=== PATIENT | female | born 1990 | race American Indian/Alaskan Native ===

== ENCOUNTER 2017-01-16 10:28 | Outpatient (CLI) | payer MEDICAID ==
[2017-01-16 13:37] VITALS: BP 119/63
== END 2017-01-16 13:46 | disposition home or self-care (01) ==
LOC: TRG 10:28 → LAB 10:28 → TRG 12:54 → LD 13:01 → TRG 13:46
PROVIDERS: ATTEND Obstetrics & Gynecology
DX: Z67.41 Type O blood, Rh negative (principal)
CPT/HCPCS: 86850; 86900; 86901; 96372; J2790

== ENCOUNTER 2017-02-28 13:29 | Inpatient (IN) | payer MEDICAID ==
[2017-02-28] MEDS ORDERED: DIPRIVAN 10 MG/ML IV ONE (13:45)
[2017-02-28] MEDS ORDERED: QUELICIN ONE (13:46)
[2017-02-28] MEDS ORDERED: ANCEF/STERILE WATER 2 GM/20 ML 2 GM/20 ML SYRINGE IV ONE (13:48)
[2017-02-28] MEDS ORDERED: NACL 0.9% IR ONE (13:55)
[2017-02-28] MEDS ORDERED: WATER FOR IRRIG STERILE IR ONE (13:55)
[2017-02-28] MEDS ORDERED: DILAUDID ONE (13:56)
[2017-02-28] MEDS ORDERED: ZOFRAN ONE (14:08)
[2017-02-28] MEDS ORDERED: NACL 0.9% 1000 ML 1,000 ML ONE ×2 (14:08→14:28)
[2017-02-28] MEDS ORDERED: DECADRON ONE (14:14)
[2017-02-28 14:24] LABS: ISTAT Base Excess -4; ISTAT DEVICE 0; ISTAT HCO3 21.7; ISTAT PCO2 39.8 (35-45); ISTAT PH 7.345 (7.35-7.45); ISTAT PO2 16 (80-105); ISTAT SO2 19; ISTAT TCO2 23
[2017-02-28 14:25] LABS: ISTAT Base Excess -5; ISTAT DEVICE 0; ISTAT HCO3 20.5; ISTAT PCO2 35.6 (35-45); ISTAT PH 7.368 (7.35-7.45); ISTAT PO2 25 (80-105); ISTAT SO2 44; ISTAT TCO2 22
--- NOTE | 2017-02-28 14:32 | History and Physical Report ---
History of Present Illness Date of examination: 02/28/17 Date of admission: 02/28/17 13:51 Chief complaint: Heavy vaginal bleeding History of present illness: Pt is a 27yo BF EDC 04/06/17; EGA 34 5/7 weeks who presented to L&D complaining of heavy vaginal bleeding, and now passing blood clots starting ~ 1 hour ago. She received care at [facility] since 14 weeks and course has been unremarkable. At the time of evaluation records were not available, but they are now. Past History Past Medical History: no pertinent history Past Surgical History: no surgical history [employer] History: abnormal PAP smear (ASCUS/HPV-), herpes, trichomonas Family/Genetic History: none Social history: no significant social history, single - Obstetrical History Expected Date of Delivery: 04/06/17 Actual Gestation: 34 Week(s) 5 Day(s) Medications and Allergies Allergies Allergy/AdvReac Type Severity Reaction Status Date / Time No Known Allergies Allergy Verified 01/16/17 13:34 Review of Systems All systems: negative - Physical Exam Breasts: Positive: deferred Cardiovascular: Regular rate Abdomen: Positive: normal appearance, soft Vagina: Positive: other (large blood clots noted.) Uterus: Positive: enlarged Extremities: Positive: normal - Obstetrical FHR: other (bedside u/s showed FHT's <100) Uterine Contraction Monitor Mode: External Results Abnormal lab results 02/28/17 02/28/17 Range/Units 14:15 14:18 POC ABG pH 7.345 L (7.35-7.45) POC ABG pO2 16 L 25 L (80-105) All other labs normal. Ultrasound: other (bedside u/s perfomed since FHT's were not obtained on the monitor) Assessment and Plan - Patient Problems (1) 34 weeks gestation of Onset Date: 02/28/17 Current Visit: Yes Status: Acute Plan to address problem: A: IUP @ 34 5/7 weeks Suspect Placental abruption P: Will proceed with a STAT C Section Anesthesia and NICU notified (2) Placental abruption in third trimester Onset Date: 02/28/17 Current Visit: Yes Status: Acute
--- NOTE | 2017-02-28 14:41 | Operative Report ---
Operative Report Operative Report: Date of procedure: 02/28/2017 Pre-operative diagnosis: 1. Intrauterine at 34 5/7 weeks 2. Vaginal bleeding - suspect abruptio placenta Post-operative diagnosis: Same with confirmed abruptio placenta Procedure name(s): Stat primary low transverse section Surgeon: Vargas Austin MD Infant Caregiver: None Anesthesia: General endotracheal intubation by Dr. Abdifatah Concepcion EBL: 600 mL's Findings: A 1999 g female Apgars 8 at 1 minute 9 at 5 minutes. Clear amniotic fluid. Large placental abruption. Normal uterus. Normal tubes and ovaries bilaterally Procedure: After the patient was prepped and draped in usual sterile fashion, and after general anesthesia was obtained, the skin knife was used to make a transverse skin incision. The incision was excised down to layer of the fascia , which was nicked in the midline and extended laterally using blunt dissection. The rectus muscles were dissected off the rectus fascia both superiorly and inferiorly. The rectus bellies in the midline, and the peritoneum was entered under direct visualization. The peritoneal incision was extended superiorly and inferiorly. A bladder flap was created and the bladder blade was then placed. The uterus was scored in a curvilinear linear fashion, entered in the midline revealing clear amniotic fluid. The infant's head was delivered onto the surgical field, and the oropharynx and nasopharynx were bulb suctioned. The rest of the infant's body was delivered, cord was doubly clamped and cut and the was handed to the waiting respiratory team. Cord gas and cord blood was then obtained. The placenta was manually removed from the uterus showing a large abruption, it was removed and sent to pathology and the uterus removed from its normal anatomical position. After gentle uterine lavage, the incision was inspected and found to be without extensions. It was then closed in 2 layers using 0 Vicryl suture in a running interlocking fashion, the second layer imbricating the first. After good hemostasis was achieved, copious amounts or irrigation was performed, and the gutters were suctioned free of blood and blood clots. Tisseel sealant was sprayed across the uterine incision. The uterus was then returned to its normal anatomical position, and after excellent hemostasis assured, the peritoneum was reapproximated using 3-0 Vicryl suture in a running interlocking fashion, and then the rectus muscles were reapproximated using 3-0 Vicryl suture in a [id number] configuration. The fascia was then reapproximated using 0 Vicryl suture in running interlocking fashion. The subcutaneous layer was made hemostatic using Bovie cautery, the Tisseel sealant was sprayed across the fascial incision and the skin edges reapproximated using 4-0 Vicryl suture in a subcuticular fashion. Patient tolerated the procedure well was transported to recovery in stable condition.
[2017-02-28] MEDS ORDERED: MYLICON PO PRN (14:52)
[2017-02-28] MEDS ORDERED: NARCAN 0.4 MG/1 ML IV PRN ×2 (14:52)
[2017-02-28] MEDS ORDERED: MILK OF MAGNESIA PO PRN (14:52)
[2017-02-28] MEDS ORDERED: NORCO 5/325 PO PRN (14:52)
[2017-02-28] MEDS ORDERED: BENADRYL IV PRN (14:52)
[2017-02-28] MEDS ORDERED: ZOFRAN IV PRN (14:52)
[2017-02-28] MEDS ORDERED: REGLAN IV PRN (14:52)
[2017-02-28] MEDS ORDERED: LANSINOH TP PRN (14:52)
[2017-02-28] MEDS ORDERED: PHENERGAN PR PRN (14:52)
[2017-02-28] MEDS ORDERED: TYLENOL PO PRN (14:52)
[2017-02-28] MEDS ORDERED: TORADOL IV PRN ×2 (14:52→14:56)
[2017-02-28] MEDS ORDERED: TUCKS PAD TP PRN (14:52)
--- NOTE | 2017-02-28 14:55 | Anesthesia Consultation ---
Anesthesia Consult and Med Hx Date of service: 02/28/17 - Airway Anesthetic Teeth Evaluation: Good ROM Head & Neck: Adequate Mental/Hyoid Distance: Adequate Mallampati Class: Class II Intubation Access Assessment: Probably Good - Pre-Operative Health Status ASA Pre-Surgery Classification: ASA2, Emergency Proposed Anesthetic Plan: General - Additional Comments Anesthesia Medical History Comments: Placenta abruption
--- NOTE | 2017-02-28 14:56 | Anesthesia Day of Surgery ---
Anesthesia Day of Surgery - Day of Surgery Patient Examined: Yes Patient H&P Reviewed: Yes Patient is NPO: Yes
[2017-02-28] MEDS ORDERED: PITOCin/NS 20 UNIT/1000ML DRIP 20 UNITS/1,000 ML BAG IV SCH (15:00)
[2017-02-28] MEDS ORDERED: SODIUM CHLORIDE FLUSH SYRINGE 10 ML IV SCH (15:00)
[2017-02-28] MEDS ORDERED: MORPHINE PCA 30MG/30ML IV SCH (15:00)
[2017-02-28] MEDS ORDERED: NACL 0.9% 1000 ML 1,000 ML IV SCH (15:00)
[2017-02-28] MEDS: DILAUDID IV PRN ×2 (15:19→16:19)
[2017-02-28] MEDS ORDERED: D5LR 1,000 ML IV SCH (16:00)
[2017-02-28 16:42] LABS: Urine Drugs of Abuse Note Disclamer
[2017-02-28 16:43] LABS: Hemoglobin 8.7 gm/dl (10.1-14.3); Mean Corpuscular HGB Conc 31 % (30-34); Mean Corpuscular Volume 77 fl (79-97); Platelet Count 224 K/mm3 (140-440); Red Blood Count 3.66 M/mm3 (3.65-5.03); Red Cell Distribution Width 17.5 % (13.2-15.2); White Blood Count 19.8 K/mm3 (4.5-11.0)
[2017-02-28 16:44] LABS: Mean Corpuscular Hemoglobin 24 pg (28-32)
[2017-02-28 17:47] LABS: Basophils % (Manual) 0 % (0.0-1.8); Blastocytes % (Manual) 0 %; Eosinophils % (Manual) 0 % (0.0-4.3)
[2017-02-28 17:49] LABS: Diff Status Complete; Poikilocytosis Few
[2017-02-28] MEDS: ANCEF/NS 1 GM/50 ML 1 GM/50 ML BAG IV SCH (23:16)
[2017-03-01] MEDS ORDERED: BOOSTRIX IM ONE (06:00)
[2017-03-01] MEDS: ANCEF/NS 1 GM/50 ML 1 GM/50 ML BAG IV SCH (06:03)
[2017-03-01] MEDS: PERCOCET 5/325 PO PRN ×2 (09:13→16:50)
[2017-03-01 09:14] LABS: Hematocrit 23.7 % (30.3-42.9); Hemoglobin 7.3 gm/dl (10.1-14.3)
--- NOTE | 2017-03-01 09:54 | Admit Criteria Form ---
Admission Criteria Documentation: OBSTETRIC AND GYNECOLOGIC DISEASE GRG Clinical Indications for Admission to Inpatient Care (Place 'X' for any and all applicable criteria): Hospital admission is needed for appropriate care of the patient because of 1 or more of the following (1)(2)(3): [ ]I. Hemodynamic instability, as indicated by 1 or more of the following (1)( 2)(3)(4)(5): [ ]a) Vital signs or other findings not as expected for chronic patient condition or baseline [ ]b) Instability indicated by 1 or more of the following: [ ]i) Hypotension [ ]ii) Symptomatic tachycardia unresponsive to treatment (eg, analgesia, fluids, sedation as indicated) [ ]iii) Inadequate perfusion indicated by 1 or more of the following: [ ]A. Lactic acidosis (greater than 2 mmol/ L) [ ]B. New abnormal capillary refill ( greater than 3 seconds) [ ]C. Reduced urine output [ ]D. New altered mental status [ ]iv) Orthostatic vital sign changes unresponsive to treatment (eg, fluids) [ ]v) Multiple IV fluid boluses required to maintain adequate blood pressure or perfusion [ ]vi) IV inotropic or vasopressor medication required to maintain adequate blood pressure or perfusion [ ]II. Obstetric infection requiring hospitalization indicated by 1 or more of the following(13)(14): [ ]a) Chorioamnionitis [ ]b) Endometritis (except mild endometritis) [ ]c) Pelvic abscess [ ]d) Peritonitis [ ]e) Septic pelvic thrombophlebitis [ ]III. Amniotic fluid or pulmonary embolism(4)(5)(6) [ ]IV. Suspected peritonitis or ectopic requiring monitoring beyond scope of 24 hours or observation care(7)(8) [ ]V. compromise requiring hospitalization indicated by ALL of the following(9)(10): [ ]a) compromise indicated by 1 or more of the following(11): [ ]i) Abnormal heart rate monitoring [ ]ii) Abnormal contraction stress test [ ]iii) Abnormal biophysical profile [ ]iv) Abnormal Doppler flow in vessels (ie, Doppler velocimetry) (12) [ ]b) Persistence of compromise indicators during evaluation and observation monitoring [ ]. Ovarian hyperstimulation syndrome requiring hospitalization[A] indicated by ALL of the following(15): [ ]a) Recent ovarian stimulation with gonadotropins, or evidence on ultrasound of spontaneous emergence of large number of ovarian follicles [ ]b) Evidence of severe ovarian hyperstimulation syndrome indicated by 1 or more of the following: [ ]i) Abdominal pain unresponsive to oral therapy [ ]ii) Acute respiratory distress syndrome [ ]iii) Electrolyte imbalance ( eg, hyponatremia, hyperkalemia) [ ]iv) Elevated liver enzymes [ ]v) Evidence of thromboembolism [ ]vi) Hemoconcentration (hematocrit greater than 45 % (0.45)) [ ]vii) Inability to maintain oral intake adequate to prevent hemoconcentration [ ]viii) Marked hypotension from baseline (eg, SBP 20 mmHg below patients usual pressure) [ ]ix) Oliguria or anuria [ ]x) Ovarian torsion [ ]xi) Pleural or pericardial effusion on x-ray or echocardiogram [ ]xii) Rapid increase in serum creatinine to greater than 1.2 mg/dL (106 micromoles/L) or creatinine clearance less than 50 mL/min/1.73m2 (0.84 mL/ sec/1.73m2) [ ]xiii) Ruptured ovarian cyst with hemorrhage [ ]xiv) Severe abdominal pain or peritoneal signs [ ]xv) Tense ascites that cannot be managed with paracentesis in outpatient setting [ ]VII.Pelvic infection requiring hospitalization indicated by 1 or more of the following (16): [ ]a) Outpatient treatment has failed or is not appropriate (eg, inpatient monitoring required) [ ]b) Pelvic abscess [ ]c) Surgical emergency cannot be excluded (eg, rigid abdomen) [ ]d) Vomiting precluding outpatient and observation care management VIII. loss complications requiring inpatient medical treatment indicated by 1 or more of the following (4)(7)(9): [ ]a) Fever [ ]b) Peritonitis [ ]c) Sepsis [ ]d) Severe abdominal pain [ ]IX. or patient requiring monitoring for severe heart failure, pulmonary disease, or other comorbid condition (eg, peripartum cardiomyopathy) (4)(17) [ ]X. patient with rupture of membranes requiring hospitalization indicated by ANY ONE of the following: [ ]a) Chorioamnionitis, cloudy amniotic fluid, or other evidence of infection [ ]b) compromise or other need for monitoring (11) [ ]c) Gestation longer than 23 weeks and ANY ONE of the following: [ ]i) Abnormal (noncephalic) presentation [ ]ii) Inadequate home environment (eg, home too far from hospital, unable to rapidly return to hospital) [ ]d) Temperature greater than 100.4 degrees F (38 degrees C)( oral) [ ]e) Threatened labor requiring monitoring beyond scope (eg, over 24 hours) of observation Care [ ] XI. complications, including severe lacerations, infections, or retained placenta (19) [X] XII.Uterine bleeding with high-risk features indicated by ANY ONE of the following (4): [ ]a) Active major hemorrhage (eg, hemorrhage) [ ]b) Coagulopathy with active bleeding [ ]c) Gestational trophoblastic disease (eg, molar ) (20 ) [X]d) (longer than 23 weeks) and ANY ONE of the following: [ ]i) Pain [X]ii) Placental abruption, known or suspected [ ]iii) Placenta accrete, known or suspected(21) [ ]iv) Placenta previa, known or suspected [ ]v) Vasa previa [ ]e) Severe anemia [ ]XIII. Obstetric or Gynecologic Disease, condition or symptom for which ANY ONE of the following: [ ]a) Emergency and observation care have failed or are not considered appropriate ( Also use General Criteria: Observation Care Criteria as appropriate) [ ]b) Presence of a General Admission Criteria or Pediatric General Admission Criteria The original [facility] content created by [facility] has been revised. The portions of the content which have been revised are identified through the use of italic text or in bold, and [facility] has neither reviewed nor approved the modified material.All other unmodified content is copyright [facility]. Please see references footnoted in the original [facility] edition 2016 Admission Criteria Met: Yes
[2017-03-01] MEDS ORDERED: PRENATAL VITAMIN PO SCH (10:00)
[2017-03-01] MEDS ORDERED: FEOSOL PO SCH (10:00)
[2017-03-01] MEDS ORDERED: INFED IM ONE (10:19)
--- NOTE | 2017-03-01 10:54 | Progress Note ---
Assessment and Plan A: POD #1 Asymptomatic Anemia P: Follow Routine PostOp Orders Advance Diet with + Flatus Infed 100mg IM Ferrous Sulfate 325mg PO TID Subjective - Subjective Date of service: 03/01/17 Patient reports: appetite normal, voiding normally, pain well controlled, ambulating normally : doing well, in NICU, bottle feeding (and ) Objective - Vital Signs Latest vital signs: Vital Signs Temp Pulse Pulse Resp BP BP Pulse Ox 03/01/17 09:13 20 03/01/17 03:50 98.5 F 63 18 125/74 03/01/17 01:22 98.2 F 78 18 130/69 02/28/17 20:45 98.1 F 70 18 136/84 02/28/17 18:25 18 02/28/17 17:30 98.7 F 73 18 142/90 02/28/17 16:55 69 15 142/79 100 02/28/17 16:40 73 18 127/94 100 02/28/17 16:25 72 17 132/79 99 02/28/17 16:19 16 02/28/17 16:10 74 16 139/88 99 02/28/17 15:55 67 15 143/67 98 02/28/17 15:40 60 15 129/85 98 02/28/17 15:25 65 15 131/83 98 02/28/17 15:10 57 L 131/88 98 02/28/17 14:55 60 18 135/74 99 02/28/17 14:50 66 18 130/82 99 02/28/17 14:45 63 16 132/63 100 02/28/17 14:40 97.6 F 83 16 147/90 100 Intake and Output 02/28/17 03/01/17 03/01/17 22:59 06:59 14:59 Intake Total 1690 1500 Output Total 1150 1900 Balance 540 -400 Intake: IV 1450 1000 ANCEF/NS 1 GM/50 ML 1 gm 50 In 50 ml @ 100 mls/hr IV Q8H ANA LILIA Rx#:[id number] D5lr 1,000 ml @ 125 mls/ 700 hr IV DIRECT ANA LILIA Rx#: [id number] PITOCin/NS 20 UNIT/1000ML 450 250 DRIP 20 units In 1,000 ml @ 250 mls/hr IV DIRECT ANA LILIA Rx#:[id number] Intake, Free Water 240 500 Output: Urine 1150 1900 Indwelling Catheter 800 1600 Void 300 Other: Total, Output Amount 800 300 Weight 80.739 kg - Exam Breasts: Present: normal Cardiovascular: Present: Regular rate Lungs: Present: Clear to auscultation, Normal air movement Abdomen: Present: normal appearance, soft, normal bowel sounds Uterus: Present: normal, firm, fundal height below umbilicus Extremities: Present: normal Incision: Present: normal, dry, dressed - Labs Labs: Abnormal lab results 02/28/17 02/28/17 02/28/17 Range/Units 14:15 14:18 16:22 WBC 19.8 H (4.5-11.0) K/mm3 Hgb 8.7 L (10.1-14.3) gm/dl Hct 28.0 L (30.3-42.9) % MCV 77 L (79-97) fl MCH 24 L (28-32) pg RDW 17.5 H (13.2-15.2) % Seg Neuts % (Manual) 90.0 H (40.0-70.0) % Lymphocytes % (Manual) 6.0 L (13.4-35.0) % Seg Neutrophils # Man 17.8 H (1.8-7.7) K/mm3 POC ABG pH 7.345 L (7.35-7.45) POC ABG pO2 16 L 25 L (80-105) 03/01/17 Range/Units 08:02 WBC (4.5-11.0) K/mm3 Hgb 7.3 L (10.1-14.3) gm/dl Hct 23.7 L (30.3-42.9) % MCV (79-97) fl MCH (28-32) pg RDW (13.2-15.2) % Seg Neuts % (Manual) (40.0-70.0) % Lymphocytes % (Manual) (13.4-35.0) % Seg Neutrophils # Man (1.8-7.7) K/mm3 POC ABG pH (7.35-7.45) POC ABG pO2 (80-105)
[2017-03-01] MEDS ORDERED: INFED IM NR (11:30)
--- NOTE | 2017-03-01 13:25 | Progress Note ---
Subjective Date of service: 03/01/17 Interval history: 1st POD after Patient is in the bed, comfortable. Pain is mostly controlled with pain meds. Ambulated well. No nausea or vomiting. No anesthesia complications Objective - Constitutional Vitals: Vital Signs - 12hr 03/01/17 03/01/17 03:50 09:13 Temperature 98.5 F Pulse Rate [ 63 Right] Respiratory 18 20 Rate Blood Pressure 125/74 [Right Arm] - Labs CBC & Chem 7: 03/01/17 08:02 Labs: Abnormal lab results 02/28/17 02/28/17 02/28/17 Range/Units 14:15 14:18 16:22 WBC 19.8 H (4.5-11.0) K/mm3 Hgb 8.7 L (10.1-14.3) gm/dl Hct 28.0 L (30.3-42.9) % MCV 77 L (79-97) fl MCH 24 L (28-32) pg RDW 17.5 H (13.2-15.2) % Seg Neuts % (Manual) 90.0 H (40.0-70.0) % Lymphocytes % (Manual) 6.0 L (13.4-35.0) % Seg Neutrophils # Man 17.8 H (1.8-7.7) K/mm3 POC ABG pH 7.345 L (7.35-7.45) POC ABG pO2 16 L 25 L (80-105) 03/01/17 Range/Units 08:02 WBC (4.5-11.0) K/mm3 Hgb 7.3 L (10.1-14.3) gm/dl Hct 23.7 L (30.3-42.9) % MCV (79-97) fl MCH (28-32) pg RDW (13.2-15.2) % Seg Neuts % (Manual) (40.0-70.0) % Lymphocytes % (Manual) (13.4-35.0) % Seg Neutrophils # Man (1.8-7.7) K/mm3 POC ABG pH (7.35-7.45) POC ABG pO2 (80-105)
[2017-03-01] MEDS ORDERED: M-M-R II VACCINE SUB-Q ONE (14:55)
[2017-03-01] MEDS: FEOSOL PO SCH (19:49)
[2017-03-01] MEDS: MOTRIN PO PRN (20:49)
[2017-03-01] MEDS ORDERED: BENADRYL PO PRN (20:53)
[2017-03-02] MEDS: PERCOCET 5/325 PO PRN (05:35)
--- NOTE | 2017-03-02 09:04 | Progress Note ---
Assessment and Plan A: POD # 2 stable P: Discharge home today Subjective - Subjective Date of service: 03/02/17 Principal diagnosis: for placental abruption Patient reports: appetite normal [place]: in NICU Objective - Vital Signs Latest vital signs: Vital Signs Temp Pulse Resp BP 03/02/17 01:40 98.1 F 81 18 113/69 03/01/17 16:50 20 03/01/17 16:00 98.4 F 78 16 130/81 03/01/17 12:00 98.2 F 83 12 133/86 03/01/17 09:13 20 Intake and Output 03/01/17 03/02/17 03/02/17 22:59 06:59 14:59 Intake Total 240 360 Balance 240 360 Intake: Intake, Free Water 240 360 Other: # Voids Void 300 1 - Exam Breasts: Present: deferred Cardiovascular: Present: Regular rate Lungs: Present: Clear to auscultation Abdomen: Present: soft Vulva: both: normal Uterus: Present: fundal height below umbilicus Extremities: Present: normal Deep Tendon Reflex Grade: Normal +2 Incision: Present: intact - Labs Labs: Abnormal lab results 03/01/17 Range/Units 08:02 Hgb 7.3 L (10.1-14.3) gm/dl Hct 23.7 L (30.3-42.9) %
--- NOTE | 2017-03-02 09:06 | Discharge Summary ---
Providers - Providers Date of Admission: 02/28/17 13:51 Date of discharge: 03/02/17 Attending physician: LILIANE CORTES MD Primary care physician: LILIANE CORTES MD Hospitalization Reason for admission: section, other (placental abruption) Delivery: Procedure: section Discharge diagnosis: delivery Orange baby: female Condition at discharge: Good Disposition: DISCHARGED TO HOME OR SELFCARE Plan - Discharge Medications Prescriptions: Ferrous Sulfate [Feosol 325 MG tab] 325 mg PO BID #60 tablet HYDROcodone/APAP 5-325 [[place] 5/325] 1 each PO Q6HR PRN #30 tablet PRN Reason: Pain Ibuprofen [Motrin] 800 mg PO Q8HR PRN #30 tablet PRN Reason: Moder Pain Unrelieved By [place] Vit W-Ca,Fe,FA(<1 mg) [ Vitamins] 1 each PO DAILY #30 tablet - Provider Discharge Summary Additional instructions: [] Smoking cessation referral if applicable(refer to patient education folder for contact #) [] Refer to [facility]'s [facility] Booklet Call your doctor immediately for: * Fever > 100.5 * Heavy vaginal bleeding ( >1 pad per hour) * Severe persistent headache * Shortness of breath * Reddened, hot, painful area to leg or breast * Drainage or odor from incision. * Keep incision clean and dry at all times and follow doctor's instructions regarding bathing/showering - Follow up plan Follow up: [facility] [Provider Group] - 14 Days
[2017-03-02] MEDS: FEOSOL PO SCH ×2 (09:17→14:38)
[2017-03-02] MEDS: MOTRIN PO PRN (09:18)
[2017-03-02 15:23] VITALS: BP 122/88
== END 2017-03-02 14:40 | disposition home or self-care (01) | DRG 765 ==
LOC: TRG 13:29 → APU 13:51 → OB 17:38
PROVIDERS: ADMIT Obstetrics & Gynecology; ATTEND Obstetrics & Gynecology
PROC: 10D00Z1 Extraction of Products of Conception, Low, Open Approach (ICD-10-PCS; principal; 2017-02-28)
PROC: 4A033R1 Measurement of Arterial Saturation, Peripheral, Percutaneous Approach (ICD-10-PCS; 2017-02-28)
PROC: 3E0334Z Introduction of Serum, Toxoid and Vaccine into Peripheral Vein, Percutaneous Approach (ICD-10-PCS; 2017-02-28)
DX: O45.93 Premature separation of placenta, unspecified, third trimester (principal); O60.14X0 Preterm labor third trimester with preterm delivery third trimester, not applicable or unspecified; O76 Abnormality in fetal heart rate and rhythm complicating labor and delivery; O90.81 Anemia of the puerperium; D64.9 Anemia, unspecified; Z3A.34 34 weeks gestation of pregnancy; Z37.0 Single live birth
CPT/HCPCS: 36415; 80307; 82803; 85007; 85014; 85018; 85025; 85460; 85461; 86850; 86870; 86900; 86901; 88307; 90471; 90715; C9250; J0330; J0690; J1100; J1170; J1750; J1885; J2270; J2405; J2590; J2704; J2790; J7030; J7121

== ENCOUNTER 2019-05-21 12:52 | Emergency (ER) | payer MEDICAID ==
--- NOTE | 2019-05-21 13:24 | Event Note ---
ED Screening Note Date of service: 05/21/19 Time: 13:22 ED Screening Note: 29 y/o female comes in for neck pain in the last few days. Today not able to turn neck. No trauma no fever. no N/V. LMP 05/17/19. This initial assessment/diagnostic orders/clinical plan/treatment(s) is/are subject to change based on patients health status, clinical progression and re- assessment by fellow clinical providers in the ED. Further treatment and workup at subsequent clinical providers discretion. Patient/guardian urged not to elope from the ED as their condition may be serious if not clinically assessed and managed. Initial orders include:
[2019-05-21] MEDS ORDERED: TORADOL IM ONE (13:25)
[2019-05-21] MEDS ORDERED: FLEXERIL PO ONE (13:25)
[2019-05-21] MEDS ORDERED: DECADRON IV ONE (14:04)
--- NOTE | 2019-05-21 14:08 | Emergency Department Report ---
ED Neck Pain/Injury HPI - General Chief Complaint: Pain General Stated Complaint: NECK PAIN Time Seen by Provider: 05/21/19 13:37 Mode of arrival: Ambulatory Limitations: No Limitations - History of Present Illness Initial Comments: Patient is a 29-year-old female who presents to the emergency room with complaints of left-sided neck pain that began 2 days ago. states that she just woke up with it. She states she's had difficulty turning towards the left side. Denies any fall, injury, trauma. She denies any numbness or weakness. she has never had this before. she denies any past medical history allergies to medications. - Related Data Previous Rx's Medication Instructions Recorded Last Taken Type Ferrous Sulfate [Feosol 325 MG tab] 325 mg PO BID #60 tablet 02/28/17 Unknown Rx HYDROcodone/APAP 5-325 [[place] 1 each PO Q6HR PRN #30 tablet 02/28/17 Unknown Rx 5/325] Vit Calc,Iron,Folic 1 each PO DAILY #30 tablet 02/28/17 Unknown Rx [ Vitamins] Cyclobenzaprine [Flexeril] 10 mg PO QHS PRN #10 tablet 05/21/19 Unknown Rx Ibuprofen [Motrin 800 MG tab] 800 mg PO Q8HR PRN #20 tablet 05/21/19 Unknown Rx Prednisone [predniSONE 10 mg 10 mg PO .TAPER #1 tab.ds.pk 05/21/19 Unknown Rx (6-Day Pack, 21 Tabs)] Allergies Allergy/AdvReac Type Severity Reaction Status Date / Time No Known Allergies Allergy Verified 05/21/19 13:24 ED Review of Systems ROS: Stated complaint: NECK PAIN Other details as noted in HPI Comment: All other systems reviewed and negative ED Past Medical Hx - Past Medical History Previous Medical History?: No Hx Hypertension: No Hx Congestive Heart Failure: No Hx Diabetes: No Hx Deep Vein Thrombosis: No Hx Renal Disease: No Hx Sickle Cell Disease: No Hx Seizures: No Hx Asthma: No Hx COPD: No Hx HIV: No - Surgical History Past Surgical History?: No - Social History Smoking Status: Current Some Day Smoker Substance Use Type: Alcohol - Medications Home Medications: Home Medications Medication Instructions Recorded Confirmed Last Taken Type Ferrous Sulfate [Feosol 325 MG tab] 325 mg PO BID #60 tablet 02/28/17 Unknown Rx HYDROcodone/APAP 5-325 [[place] 1 each PO Q6HR PRN #30 tablet 02/28/17 Unknown Rx 5/325] Vit Calc,Iron,Folic 1 each PO DAILY #30 tablet 02/28/17 Unknown Rx [ Vitamins] Cyclobenzaprine [Flexeril] 10 mg PO QHS PRN #10 tablet 05/21/19 Unknown Rx Ibuprofen [Motrin 800 MG tab] 800 mg PO Q8HR PRN #20 tablet 05/21/19 Unknown Rx Prednisone [predniSONE 10 mg 10 mg PO .TAPER #1 tab.ds.pk 05/21/19 Unknown Rx (6-Day Pack, 21 Tabs)] ED Physical Exam - General Limitations: No Limitations General appearance: alert, in no apparent distress - Head Head exam: Present: atraumatic, normocephalic - Eye Eye exam: Present: normal appearance, PERRL - ENT ENT exam: Present: mucous membranes moist - Neck Neck exam: Present: normal inspection, tenderness (left C-spine paraspinal muscular TTP, no midline C-spine tenderness), full ROM (pain with rotating to the left ), other (+muscle spasm on the left ). Absent: meningismus - Respiratory Respiratory exam: Present: normal lung sounds bilaterally. Absent: respiratory distress, wheezes, rales, rhonchi, stridor, chest wall tenderness, accessory muscle use, decreased breath sounds, prolonged expiratory - Cardiovascular Cardiovascular Exam: Present: regular rate, normal rhythm, normal heart sounds. Absent: systolic murmur, diastolic murmur, rubs, gallop - Neurological Exam Neurological exam: Present: alert, oriented X3, CN II-XII intact, normal gait. Absent: motor sensory deficit - Psychiatric Psychiatric exam: Present: normal affect, normal mood - Skin Skin exam: Present: warm, dry, intact ED Course Vital Signs 05/21/19 05/21/19 05/21/19 12:57 13:22 13:37 Temperature 98.3 F Pulse Rate 120 H 95 H Respiratory 16 20 Rate Blood Pressure Blood Pressure 160/98 [Left] O2 Sat by Pulse 100 100 Oximetry 05/21/19 14:23 Temperature Pulse Rate 100 H Respiratory Rate Blood Pressure 167/118 Blood Pressure [Left] O2 Sat by Pulse 100 Oximetry ED Medical Decision Making - Medical Decision Making Patient is a 29-year-old female who presents to the emergency room with complaints of left-sided neck pain that began 2 days ago. states that she just woke up with it. She states she's had difficulty turning towards the left side. Denies any fall, injury, trauma. She denies any numbness or weakness. she has never had this before. she denies any past medical history allergies to medications. on exam: left C-spine paraspinal muscular TTP, no midline C-spine tenderness, +muscle spasm on the left, no neuro deficits. pt given toradol, dexamethsone, and flexeril while in the ED and her symptoms improved. pt given flexeril and ibuprofen and prednisone. advised pt to please take medications as prescribed. Do not drive or operate heavy machinery while taking muscle relaxer. may use ice, rest, heat, epsom salt bath. Return to the emergency room for any new or worsening symptoms. discussed with pt the elevation in her blood pressure and advised her to keep a BP log and to see her PCP and discuss with her PCP. - Differential Diagnosis torticolis, muscle strain, muscle spasm Critical care attestation.: If time is entered above; I have spent that time in minutes in the direct care of this critically ill patient, excluding procedure time. ED Disposition Clinical Impression: Neck pain, Muscle spasm, Elevated blood pressure reading Disposition: DC-01 TO HOME OR SELFCARE Is pt being admited?: No Does the pt Need Aspirin: No Condition: Stable Instructions: Muscle Spasm (ED) Additional Instructions: Please take medications as prescribed. Do not drive or operate heavy machinery while taking muscle relaxer. may use ice, rest, heat, epsom salt bath. Return to the emergency room for any new or worsening symptoms. Prescriptions: Cyclobenzaprine [Flexeril] 10 mg PO QHS PRN #10 tablet PRN Reason: Muscle Spasm Ibuprofen [Motrin 800 MG tab] 800 mg PO Q8HR PRN #20 tablet PRN Reason: Pain, Moderate (4-6) Prednisone [predniSONE 10 mg (6-Day Pack, 21 Tabs)] 10 mg PO .TAPER #1 tab.ds.pk Referrals: SHY TERRELL MD [Primary Care Provider] - 2-3 Days Time of Disposition: 14:10 Print Language: CAPE VERDEAN
[2019-05-21] MEDS ORDERED: DECADRON IM ONE (14:25)
[2019-05-21 14:26] VITALS: BP 167/118
== END 2019-05-21 14:31 | disposition home or self-care (01) ==
LOC: ED 12:52
DX: M54.2 Cervicalgia (principal); M62.838 Other muscle spasm; I10 Essential (primary) hypertension; F17.200 Nicotine dependence, unspecified, uncomplicated; Z79.1 Long term (current) use of non-steroidal anti-inflammatories (NSAID); Z79.899 Other long term (current) drug therapy
CPT/HCPCS: 96372; 99282; J1100; J1885

== ENCOUNTER 2019-09-30 16:17 | Inpatient (IN) | payer MEDICAID ==
[2019-09-30] MEDS ORDERED: SODIUM CHLORIDE 0.9% 500 ML 500 ML IV SCH (17:37)
[2019-09-30] MEDS: SODIUM CHLORIDE 0.9% 1000 ML 1,000 ML IV SCH (17:38)
[2019-09-30 20:13] LABS: Hematocrit 26.8 % (30.3-42.9); Hemoglobin 8.2 gm/dl (10.1-14.3)
--- NOTE | 2019-09-30 20:18 | History and Physical Report ---
History of Present Illness Date of examination: 09/30/19 Date of admission: 09/30/19 17:08 Chief complaint: Generalized fatigue, symptomatic anemia/picca syndrome. History of present illness: Patient presented to the office, with easy fatigue, and dyspnea, labs reviewed, hgb of 7.1, previously 8.2 2weeks prior. Hx of heavy menstrual periods.She was examined, and admitted to the hospital, for sxs management, and control. She will be hydrated, and get replacement transfusion. 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 Past History Past Medical History: anemia, hypertension Social history: single, lives with family Family history: no significant family history Medications and Allergies Allergies Allergy/AdvReac Type Severity Reaction Status Date / Time No Known Allergies Allergy Verified 05/21/19 13:24 Home Medications Medication Instructions Recorded Confirmed Last Taken Type Ferrous Sulfate [Feosol 325 MG tab] 325 mg PO BID #60 tablet 02/28/17 09/30/19 Unknown Rx HYDROcodone/APAP 5-325 [[place] 1 each PO Q6HR PRN #30 tablet 02/28/17 09/30/19 Unknown Rx 5/325] Vit Calc,Iron,Folic 1 each PO DAILY #30 tablet 02/28/17 09/30/19 Unknown Rx [ Vitamins] Cyclobenzaprine [Flexeril] 10 mg PO QHS PRN #10 tablet 05/21/19 09/30/19 Unknown Rx Ibuprofen [Motrin 800 MG tab] 800 mg PO Q8HR PRN #20 tablet 05/21/19 09/30/19 Unknown Rx Prednisone [predniSONE 10 mg 10 mg PO .TAPER #1 tab.ds.pk 05/21/19 09/30/19 Unknown Rx (6-Day Pack, 21 Tabs)] Active Meds: Active Medications Amlodipine Besylate (Amlodipine) 10 mg PO QDAY ANA LILIA Sodium Chloride (Nacl 0.9% 1000 Ml) 1,000 mls @ 125 mls/hr IV DIRECT ANA LILIA Last Admin: 09/30/19 17:38 Dose: 125 mls/hr Documented by: Sodium Chloride (Nacl 0.9% 500 Ml) 500 mls @ 0 mls/hr IV ONCE ANA LILIA Stop: 10/01/19 06:00 Potassium Chloride (K-Dur) 20 meq PO QDAY ANA LILIA Review of Systems Constitutional: fatigue, weakness, malaise Breasts: deferred Exam - Constitutional Vitals: Temp Pulse Resp BP Pulse Ox 97.5 F L 111 H 18 135/97 100 09/30/19 17:43 09/30/19 17:43 09/30/19 17:43 09/30/19 17:43 09/30/19 17:43 General appearance: Present: mild distress, well-nourished - EENT Eyes: Present: PERRL ENT: hearing intact, clear oral mucosa - Neck Neck: Present: supple, normal ROM - Respiratory Respiratory effort: normal Respiratory: bilateral: CTA - Cardiovascular Heart Sounds: Present: S1 & S2. Absent: rub, click - Extremities Extremities: pulses symmetrical, No edema Peripheral Pulses: within normal limits - Abdominal General gastrointestinal: Present: soft, non-tender, non-distended, normal bowel sounds Female genitourinary: Present: deferred - Rectal Rectal Exam: deferred - Integumentary Integumentary: Present: clear, warm, dry - Musculoskeletal Musculoskeletal: gait normal, strength equal bilaterally - Psychiatric Psychiatric: appropriate mood/affect, intact judgment & insight - Neurologic Neurologic: CNII-XII intact, moves all extremities Assessment and Plan - Patient Problems (1) Generalized weakness Current Visit: Yes Status: Acute Plan to address problem: supportive care care (2) Dehydration Current Visit: Yes Status: Acute Plan to address problem: Hydration. (3) Anemia Current Visit: Yes Status: Acute Plan to address problem: Blood transfusion
[2019-09-30 20:38] LABS: Iron 127 ug/dL (37-170); Total Iron Binding Capacity 469 mcg/dL (250-450)
[2019-10-01] MEDS: SODIUM CHLORIDE 0.9% 1000 ML 1,000 ML IV SCH (03:06)
[2019-10-01] MEDS ORDERED: amLODIPine 10 MG TAB PO SCH (10:00)
[2019-10-01] MEDS ORDERED: POTASSIUM CHLORIDE ER 20 MEQ TAB PO SCH (10:00)
[2019-10-01] MEDS ORDERED: FUROSEMIDE 40 MG/4 ML INJ IV STA (10:37)
[2019-10-01] MEDS ORDERED: FUROSEMIDE 20 MG/2 ML INJ IV ONE (11:00)
[2019-10-01 18:22] VITALS: BP 135/90
[2019-10-01 19:33] LABS: Hemoglobin 11.7 gm/dl (10.1-14.3)
--- NOTE | 2019-10-01 20:04 | Discharge Summary ---
Providers - Providers Date of Admission: 09/30/19 17:08 Date of discharge: 10/01/19 Attending physician: NORMA HOLLAND Primary care physician: SHY TERRELL Hospitalization Condition: Good Hospital course: Patient seen/examined, resting in bed, labs reviewed, post transfusion, hgb well stable, responded quite well to the transfusion. patient had presented to the office ,with generalized weakness, /fatigue. Hgb was quite low. patient was admitted for sxs management, and control. patient denies any new issues at this time, She denies any Chest pain. BP was elevated earlier, lasix was given, as well as her BP meds, and she did well. Patient will be d/c home now. Disposition: - TO HOME OR SELFCARE - Discharge Diagnoses (1) Generalized weakness Status: Resolved (2) Dehydration Status: Resolved (3) Anemia Status: Resolved Core Measure Documentation - Palliative Care Palliative Care/ Comfort Measures: Not Applicable - Core Measures Any of the following diagnoses?: none Exam - Constitutional Vitals: Temp Pulse Resp BP Pulse Ox 98.1 F 82 20 135/90 100 10/01/19 16:50 10/01/19 16:50 10/01/19 16:50 10/01/19 16:50 10/01/19 16:50 General appearance: Present: no acute distress, well-nourished - EENT Eyes: Present: PERRL ENT: hearing intact, clear oral mucosa - Neck Neck: Present: supple, normal ROM - Respiratory Respiratory effort: normal Respiratory: bilateral: CTA - Cardiovascular Heart Sounds: Present: S1 & S2. Absent: rub, click - Extremities Extremities: pulses symmetrical, No edema Peripheral Pulses: within normal limits - Abdominal General gastrointestinal: Present: soft, non-tender, non-distended, normal bowel sounds Female genitourinary: Present: deferred - Rectal Rectal Exam: deferred - Integumentary Integumentary: Present: clear, warm, dry - Musculoskeletal Musculoskeletal: gait normal, strength equal bilaterally - Psychiatric Psychiatric: appropriate mood/affect, intact judgment & insight - Neurologic Neurologic: CNII-XII intact, moves all extremities Plan Activity: no restrictions Diet: low salt Follow up with: SHY TERRELL MD [Primary Care Provider] - 7 Days YIMI CASTRO MD [Staff Physician] - 7 Days NORMA HOLLAND DO [Staff Physician] - 7 Days
== END 2019-10-01 21:11 | disposition home or self-care (01) | DRG 812 ==
LOC: 3A 16:17 → UNDOADMIN 16:17 → 3A 17:08
PROVIDERS: ADMIT Internal Medicine Hematology & Oncology; ATTEND Internal Medicine Hematology & Oncology
PROC: 30233N1 Transfusion of Nonautologous Red Blood Cells into Peripheral Vein, Percutaneous Approach (ICD-10-PCS; principal; 2019-09-30)
DX: D64.9 Anemia, unspecified (principal); E86.0 Dehydration; I10 Essential (primary) hypertension; Z79.899 Other long term (current) drug therapy
CPT/HCPCS: 36415; 82728; 83550; 85014; 85018; 85613; 86850; 86900; 86901; 86920; G0378; J1940; J7030; J7040; P9016

== ENCOUNTER 2020-12-22 12:26 | Emergency (ER) | payer MEDICAID ==
--- NOTE | 2020-12-22 13:56 | Event Note ---
ED Screening Note Date of service: 12/22/20 Time: 13:55 ED Screening Note: 31-year-old -[place] female with a history of hypertension presents to the emergency room for syncopal moment work. Patient reports she had times in the past. Patient reports has a history of anemia. She does have a primary care provider. This initial assessment/diagnostic orders/clinical plan/treatment(s) is/are subject to change based on patients health status, clinical progression and re- assessment by fellow clinical providers in the ED. Further treatment and workup at subsequent clinical providers discretion. Patient/guardian urged not to elope from the ED as their condition may be serious if not clinically assessed and managed. Initial orders include:
[2020-12-22 14:25] LABS: Basophils # (Auto) 0.1 K/mm3 (0.0-0.1); Basophils % (Auto) 1.1 % (0.0-1.8); Eosinophils # (Auto) 0.3 K/mm3 (0.0-0.4); Eosinophils % (Auto) 5.9 % (0.0-4.3); Hematocrit 32.4 % (30.3-42.9); Hemoglobin 10.3 gm/dl (10.1-14.3); Lymphocytes # (Auto) 1.6 K/mm3 (1.2-5.4); Lymphocytes % (Auto) 34.9 % (13.4-35.0); Mean Corpuscular HGB Conc 32 % (30-34); Monocytes # (Auto) 0.4 K/mm3 (0.0-0.8); Monocytes % (Auto) 9.2 % (0.0-7.3); Platelet Count 428 K/mm3 (140-440); Red Blood Count 4.79 M/mm3 (3.65-5.03)
[2020-12-22 14:26] LABS: Mean Corpuscular Volume 68 fl (79-97)
[2020-12-22 14:42] LABS: Creatine Kinase MB 1.3 ng/mL (0.0-4.0)
[2020-12-22 14:43] LABS: Alanine Aminotransferase 10 units/L (7-56); Albumin 4.8 g/dL (3.9-5); BUN/Creatinine Ratio 10; Blood Urea Nitrogen 7 mg/dL (7-17); Calcium 9.8 mg/dL (8.4-10.2); Hemolysis Index 2
--- NOTE | 2020-12-22 14:44 | Emergency Department Report ---
HPI - General Chief Complaint: Syncope Time Seen by Provider: 12/22/20 14:18 - HPI HPI: This is a 30-year-old -[place] female presents to the emergency department via EMS from work after having nausea, vomiting, and passing out. Patient says that she woke up this morning and felt lightheaded but that improved after taking her blood pressure medication. She went to work and felt a tightness in her shoulders, "which is usually what happens prior to me passing out." The patient went into the break room, sat down, but then began having some nausea with vomiting. Shortly after she finished vomiting the patient stood up and then passed out. The patient says that she does have a history of recurrent episodes of passing out and the last one happened about 2 weeks ago. The patient is currently having this evaluated by her primary care physician and has also seen cardiology, neurology, otolaryngology, but "nobody has found out what is going on." She has a past medical history of hypertension. No recent travel or sick contacts at home. ED Past Medical Hx - Past Medical History Hx Hypertension: No Hx Congestive Heart Failure: No Hx Diabetes: No Hx Deep Vein Thrombosis: No Hx Renal Disease: No Hx Sickle Cell Disease: No Hx Seizures: No Hx Asthma: No Hx COPD: No Hx HIV: No - Surgical History Additional Surgical History: - Social History Smoking Status: Current Every Day Smoker Substance Use Type: Alcohol, Marijuana - Medications Home Medications: Home Medications Medication Instructions Recorded Confirmed Last Taken Type Ferrous Sulfate [Feosol 325 MG tab] 325 mg PO BID #60 tablet 02/28/17 09/30/19 Unknown Rx HYDROcodone/APAP 5-325 [[place] 1 each PO Q6HR PRN #30 tablet 02/28/17 09/30/19 Unknown Rx 5/325] Vit Calc,Iron,Folic 1 each PO DAILY #30 tablet 02/28/17 09/30/19 Unknown Rx [ Vitamins] Cyclobenzaprine [Flexeril] 10 mg PO QHS PRN #10 tablet 05/21/19 09/30/19 Unknown Rx Ibuprofen [Motrin 800 MG tab] 800 mg PO Q8HR PRN #20 tablet 05/21/19 09/30/19 Unknown Rx Prednisone [predniSONE 10 mg 10 mg PO .TAPER #1 tab.ds.pk 05/21/19 09/30/19 Unknown Rx (6-Day Pack, 21 Tabs)] Hyoscyamine Subl [Levsin Sl 0.125 0.125 mg SL Q6HR PRN #10 tab 06/12/20 Unknown Rx TAB] Ondansetron [Zofran Odt] 4 mg PO Q8HR PRN #10 tab.rapdis 06/12/20 Unknown Rx Ondansetron [Zofran Odt] 4 mg PO Q8HR PRN #14 tab.rapdis 12/22/20 Unknown Rx ED Review of Systems ROS: Stated complaint: LIGHTHEADED/VOMITING Other details as noted in HPI Comment: All other systems reviewed and negative Constitutional: denies: chills, fever Eyes: denies: eye pain, vision change ENT: denies: ear pain, throat pain Respiratory: denies: cough, shortness of breath Cardiovascular: syncope. denies: chest pain, palpitations Gastrointestinal: nausea, vomiting Genitourinary: denies: dysuria, discharge Musculoskeletal: denies: back pain, arthralgia Skin: denies: rash, lesions Neurological: denies: headache, weakness Physical Exam - Physical Exam Vital Signs: Vital Signs 12/22/20 12/22/20 13:09 13:58 Temperature 99.1 F Pulse Rate 79 Respiratory 16 Rate Blood Pressure 161/112 Blood Pressure 160/96 [Left] O2 Sat by Pulse 100 Oximetry Physical Exam: GENERAL: The patient is well-developed well-nourished. HENT: Normocephalic. Atraumatic. Patient has moist mucous membranes. EYES: Extraocular motions are intact. No nystagmus. NECK: Supple. Trachea is midline. CHEST/LUNGS: Clear to auscultation. There is no respiratory distress noted. HEART/CARDIOVASCULAR: Regular. There is no tachycardia. There is no murmur. ABDOMEN: Abdomen is soft, nontender. Patient has normal bowel sounds. SKIN: Skin is warm and dry. NEURO: The patient is awake, alert, and oriented. The patient is cooperative. The patient has no focal neurologic deficits. Normal speech. Cranial nerves II through XII grossly intact. No facial asymmetry. No pronator drift or dysmetria. MUSCULOSKELETAL: There is no tenderness or deformity. There is no limitation range of motion. ED Course Vital Signs 12/22/20 12/22/20 13:09 13:58 Temperature 99.1 F Pulse Rate 79 Respiratory 16 Rate Blood Pressure 161/112 Blood Pressure 160/96 [Left] O2 Sat by Pulse 100 Oximetry ED Medical Decision Making - Lab Data Result diagrams: 12/22/20 14:06 12/22/20 14:06 Lab Results 12/22/20 12/22/20 12/22/20 Range/Units 14:06 14:06 14:06 WBC 4.7 (4.5-11.0) K/mm3 RBC 4.79 (3.65-5.03) M/mm3 Hgb 10.3 (10.1-14.3) gm/dl Hct 32.4 (30.3-42.9) % MCV 68 L (79-97) fl MCH 21 L (28-32) pg MCHC 32 (30-34) % RDW 17.0 H (13.2-15.2) % Plt Count 428 (140-440) K/mm3 Lymph % (Auto) 34.9 (13.4-35.0) % [place] % (Auto) 9.2 H (0.0-7.3) % Eos % (Auto) 5.9 H (0.0-4.3) % Baso % (Auto) 1.1 (0.0-1.8) % Lymph # (Auto) 1.6 (1.2-5.4) K/mm3 [place] # (Auto) 0.4 (0.0-0.8) K/mm3 Eos # (Auto) 0.3 (0.0-0.4) K/mm3 Baso # (Auto) 0.1 (0.0-0.1) K/mm3 Seg Neutrophils % 48.9 (40.0-70.0) % Seg Neutrophils # 2.3 (1.8-7.7) K/mm3 Sodium 141 (137-145) mmol/L Potassium 4.1 (3.6-5.0) mmol/L Chloride 102.0 (98-107) mmol/L Carbon Dioxide 26 (22-30) mmol/L Anion Gap 17 mmol/L BUN 7 (7-17) mg/dL Creatinine 0.7 (0.6-1.2) mg/dL Estimated GFR > 60 ml/min BUN/Creatinine Ratio 10 % Glucose 93 (65-100) mg/dL Calcium 9.8 (8.4-10.2) mg/dL Magnesium 2.30 (1.7-2.3) mg/dL Total Bilirubin 0.30 (0.1-1.2) mg/dL AST 16 (5-40) units/L ALT 10 (7-56) units/L Alkaline Phosphatase 72 (35-129) units/L Total Creatine Kinase 192 H (30-135) units/L CK-MB (CK-2) 1.3 (0.0-4.0) ng/mL CK-MB (CK-2) Rel Index 0.6 (0-4) Total Protein 7.5 (6.3-8.2) g/dL Albumin 4.8 (3.9-5) g/dL Albumin/Globulin Ratio 1.8 % TSH 1.160 (0.270-4.200) mlU/mL HCG, Qual (Negative) 12/22/20 Range/Units 14:06 WBC (4.5-11.0) K/mm3 RBC (3.65-5.03) M/mm3 Hgb (10.1-14.3) gm/dl Hct (30.3-42.9) % MCV (79-97) fl MCH (28-32) pg MCHC (30-34) % RDW (13.2-15.2) % Plt Count (140-440) K/mm3 Lymph % (Auto) (13.4-35.0) % [place] % (Auto) (0.0-7.3) % Eos % (Auto) (0.0-4.3) % Baso % (Auto) (0.0-1.8) % Lymph # (Auto) (1.2-5.4) K/mm3 [place] # (Auto) (0.0-0.8) K/mm3 Eos # (Auto) (0.0-0.4) K/mm3 Baso # (Auto) (0.0-0.1) K/mm3 Seg Neutrophils % (40.0-70.0) % Seg Neutrophils # (1.8-7.7) K/mm3 Sodium (137-145) mmol/L Potassium (3.6-5.0) mmol/L Chloride (98-107) mmol/L Carbon Dioxide (22-30) mmol/L Anion Gap mmol/L BUN (7-17) mg/dL Creatinine (0.6-1.2) mg/dL Estimated GFR ml/min BUN/Creatinine Ratio % Glucose (65-100) mg/dL Calcium (8.4-10.2) mg/dL Magnesium (1.7-2.3) mg/dL Total Bilirubin (0.1-1.2) mg/dL AST (5-40) units/L ALT (7-56) units/L Alkaline Phosphatase (35-129) units/L Total Creatine Kinase (30-135) units/L CK-MB (CK-2) (0.0-4.0) ng/mL CK-MB (CK-2) Rel Index (0-4) Total Protein (6.3-8.2) g/dL Albumin (3.9-5) g/dL Albumin/Globulin Ratio % TSH (0.270-4.200) mlU/mL HCG, Qual Negative (Negative) - EKG Data -: EKG Interpreted by [place] EKG shows normal: sinus rhythm, axis, intervals, QRS complexes, ST-T waves Rate: normal - EKG Data When compared to previous EKG there are: no significant change Interpretation: unchanged when compared t (05/25/20) - Medical Decision Making This patient presents to the emergency department after having a syncopal episode prior to presentation and this occurred after the patient had an episode of nausea with vomiting. Since being in the emergency department, and since my initial examination, the patient has been awake, alert, oriented. She does not have any focal, motor or sensory deficits and her cranial nerves are intact. EKG has been negative x2 for any morphology consistent with ST elevation m yocardial infarction or any dysrhythmia. Patient's labs have been unremarkable including CBC, metabolic panel, TSH level. Vital signs have been reassuring throughout her ED course including being afebrile. Based on the patient's description of how the syncopal episode happened, it appears to be a mix of being a vasovagal episode with some orthostatic hypotension. However the patient has had multiple syncopal episodes in the past and has had multiple outpatient referrals including cardiology, otolaryngology and neurology. She has good outpatient follow-up with the specialist, as well as her primary care physician, and appears safe for discharge home at this time. Critical Care Time: No Critical care attestation.: If time is entered above; I have spent that time in minutes in the direct care of this critically ill patient, excluding procedure time. ED Disposition Clinical Impression: Syncope Qualifiers: Syncope type: unspecified Qualified Code(s): R55 - Syncope and collapse Hypertension Qualifiers: Hypertension type: essential hypertension Qualified Code(s): I10 - Essential (primary) hypertension Nausea & vomiting Qualifiers: Vomiting type: unspecified Vomiting Intractability: non-intractable Qualified Code(s): R11.2 - Nausea with vomiting, unspecified Disposition: - TO HOME OR SELFCARE Is pt being admited?: No Condition: Stable Instructions: Syncope, Hypertension, Adult, Syncope (ED), Hypertension (ED) Additional Instructions: Please follow-up with your primary care physician in the next few days. Take your blood pressure medications as prescribed. Try to stay away from foods that are high in salt and caffeinated products. Keep a blood pressure log. Return to the emergency department with any worsening of your symptoms, new or concerning symptoms not addressed during this current emergency department vis it, or with any acute distress. Prescriptions: Ondansetron [Zofran Odt] 4 mg PO Q8HR PRN #14 tab.rapdis PRN Reason: Nausea Referrals: PRIMARY CARE,MD [Primary Care Provider] - 2-3 Days Forms: Work/School Release Form(ED) Time of Disposition: 16:11
[2020-12-22 16:22] VITALS: BP 129/85
== END 2020-12-22 16:22 | disposition home or self-care (01) ==
LOC: ED 12:26
DX: R55 Syncope and collapse (principal); R11.2 Nausea with vomiting, unspecified; I10 Essential (primary) hypertension; F17.200 Nicotine dependence, unspecified, uncomplicated; F12.10 Cannabis abuse, uncomplicated; Z98.890 Other specified postprocedural states; Z79.1 Long term (current) use of non-steroidal anti-inflammatories (NSAID); Z79.899 Other long term (current) drug therapy
CPT/HCPCS: 36415; 80053; 82550; 82553; 83735; 84443; 84703; 85025; 93005